=== PATIENT | male | born 2000 | race Caucasian/White ===

== ENCOUNTER 2023-06-07 03:31 | Emergency (ER) | payer SELFPAY ==
[2023-06-07 03:45] VITALS: BP 142/91; PULSE 91; RESP 18; TEMP 37; O2SAT 95; BMI 25.8
[2023-06-07 03:51] VITALS: BP 124/75; PULSE 90; RESP 16; O2SAT 95
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
[2023-06-07] MEDS: oxyCODONE-APAP 5-325 mg Tablet 2 TAB PO (04:15)
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
[2023-06-07] MEDS: lidocaine 1% INJ 10 mL (per mL) 20 ML INJECTION (04:42)
[2023-06-07 05:13] VITALS: BP 131/83; PULSE 107; RESP 16; O2SAT 98
--- NOTE | 2023-06-10 09:08 | DCPLANNER ---
Addendum entered by Evy Meyer 06/18/23 09:58: athlete manager received the following message from the ENT clinic regarding follow up appointment: patient declined Original Note: athlete manager had message to schedule a follow up appointment for patient with ENT. athlete manager sent patients information to the front office staff at ENT. Patients information will be printed and reviewed. Clinic will call patient with appointment information.
== END 2023-06-07 05:27 | disposition home or self-care (01) ==
PROVIDERS: Emergency Provider Emergency Medicine; Family Provider Family Medicine; PCP Family Medicine
DX: S02.40CA Maxillary fracture, right side, initial encounter for closed fracture (principal); S01.112A Laceration without foreign body of left eyelid and periocular area, initial encounter; S01.111A Laceration without foreign body of right eyelid and periocular area, initial encounter; S02.5XXA Fracture of tooth (traumatic), initial encounter for closed fracture; S00.83XA Contusion of other part of head, initial encounter; S02.31XA Fracture of orbital floor, right side, initial encounter for closed fracture; Y04.2XXA Assault by strike against or bumped into by another person, initial encounter
CPT/HCPCS: 12013; 70450; 70486; 72125; 99284